=== PATIENT | female | born 1940 | race Caucasian/White ===

== ENCOUNTER 2018-06-07 10:28 | Day surgery (SDC) | payer OTHER, BC ==
[2018-06-06 16:30] VITALS: BMI 24.5
[2018-06-07 12:33] VITALS: TEMP 97.7
[2018-06-07 13:50] VITALS: BP 114/67; PULSE 60
== END 2018-06-07 13:50 | disposition home or self-care (01) ==
LOC: JASU-ENDO 10:28
PROVIDERS: ATTEND Internal Medicine Gastroenterology
PROC: 0DJD8ZZ Inspection of Lower Intestinal Tract, Via Natural or Artificial Opening Endoscopic (ICD-10-PCS; principal; 2018-06-07 11:45)
DX: Z12.11 Encounter for screening for malignant neoplasm of colon (principal); K57.30 Diverticulosis of large intestine without perforation or abscess without bleeding